=== PATIENT | female | born 1985 | race Caucasian/White ===

== ENCOUNTER 2016-11-23 09:07 | Emergency (ER) | payer SELFPAY ==
[2016-11-23 09:12] VITALS: BP 136/79
--- NOTE | 2016-11-23 10:14 | ER Document Report ---
[id number] NUMBNESS Mode of Arrival: Ambulatory Information source: Patient Notes: 31-year-old female presents with complaints of right hand numbness. Patient notes this has been ongoing for 2 months, notes it is her first and fourth digits that are the worst but her whole hand goes numb. Patient does note that she is o'clock and has repetitive motion of her right hand. Denies any other injuries. Patient notes pain does radiate to her elbow intermittently TRAVEL OUTSIDE OF THE [place] IN LAST 30 DAYS: No - HPI Onset: Other Onset/Duration: Intermittent - Improves with ice worsens in the morning Quality of pain: Achy Severity: Mild Pain Level: 1 Associated symptoms: Other Exacerbated by: Movement Relieved by: Denies Similar symptoms previously: No Recently seen / treated by doctor: No - Related Data Allergies/Adverse Reactions: No Known Allergies Allergy (Verified 11/23/16 09:14) Past Medical History - Social History Smoking Status: Never Smoker Cigarette use (# per day): No Chew tobacco use (# tins/day): No Smoking Education Provided: No Family History: Reviewed & Not Pertinent Patient has suicidal ideation: No Patient has homicidal ideation: No Renal/ Medical History: Denies: Hx Peritoneal Dialysis Surgical Hx: Negative Review of Systems - Review of Systems Notes: REVIEW OF SYSTEMS: CONSTITUTIONAL : Denies fever, chills, or sweats. Denies recent illness. EENT: Denies eye, ear, throat, or mouth pain or symptoms. Denies nasal or sinus congestion or discharge. Denies throat, tongue, or mouth swelling or difficulty swallowing. CARDIOVASCULAR: Denies chest pain. Denies palpitations or racing or irregular heart beat. Denies ankle edema. RESPIRATORY: Denies cough, cold, or chest congestion. Denies shortness of breath, difficulty breathing, or wheezing. GASTROINTESTINAL: Denies abdominal pain or distention. Denies nausea, vomiting , or diarrhea. Denies blood in vomitus, stools, or per rectum. Denies black, tarry stools. Denies constipation. GENITOURINARY: Denies difficulty urinating, painful urination, burning, frequency, blood in urine, or discharge. FEMALE GENITOURINARY: Denies vaginal bleeding, heavy or abnormal periods, irregular periods. Denies vaginal discharge or odor. MUSCULOSKELETAL: Admits to right arm hand pain SKIN: Denies rash, lesions or sores. HEMATOLOGIC : Denies easy bruising or bleeding. LYMPHATIC: Denies swollen, enlarged glands. NEUROLOGICAL: Denies confusion or altered mental status. Denies passing out or loss of consciousness. Denies dizziness or lightheadedness. Denies headache. Denies weakness or paralysis or loss of use of either side. Denies problems with gait or speech. Denies sensory loss, numbness, or tingling. Denies seizures. PSYCHIATRIC: Denies anxiety or stress. Denies depression, suicidal ideation, or homicidal ideation. ALL OTHER SYSTEMS REVIEWED AND NEGATIVE. Dictation was performed using [employer] recognition software PHYSICAL EXAMINATION: GENERAL: Well-appearing, well-nourished and in no acute distress. HEAD: Atraumatic, normocephalic. EYES: Pupils equal round and reactive to light, extraocular movements intact, conjunctiva are normal. ENT: Nares patent, oropharynx clear without exudates. Moist mucous membranes. NECK: Normal range of motion, supple without lymphadenopathy LUNGS: Breath sounds clear to auscultation bilaterally and equal. No wheezes rales or rhonchi. HEART: Regular rate and rhythm without murmurs ABDOMEN: Soft, nontender, nondistended abdomen. No guarding, no rebound. No masses appreciated. Female : deferred Musculoskeletal: Normal range of motion, no pitting or edema. No cyanosis. NEUROLOGICAL: Cranial nerves grossly intact. Normal speech, normal gait. Normal sensory, motor exams PSYCH: Normal mood, normal affect. SKIN: Warm, Dry, normal turgor, no rashes or lesions noted. Physical Exam - Vital signs Vitals: Temp Pulse Resp BP Pulse Ox 97.8 F 70 16 136/79 H 99 11/23/16 09:12 11/23/16 09:12 11/23/16 09:12 11/23/16 09:12 11/23/16 09:12 Course - Re-evaluation Re-evalutation: 11/23/16 10:12 I believe patient's pain is secondary to overuse and repetitive motion, she'll be placed in cock-up splint given steroids anti-inflammatories. Patient's otherwise stable for discharge. Patient will be given orthopedic follow-up as needed After performing a Medical Screening Examination, I estimate there is LOW risk for INTRACRANIAL HEMORRHAGE, UNSTABLE SPINE FRACTURE, CENTRAL CORD SYNDROME, CAUDA EQUINA, THORACIC AORTIC DISSECTION, PNEUMOTHORAX, PERFORATED BOWEL, RUPTURED ABDOMINAL AORTIC ANEURYSM, ACUTE TENDON RUPTURE, COMPARTMENT SYNDROME, or OPEN FRACTURE, thus I consider the discharge disposition reasonable. Also, there is no evidence or peritonitis, sepsis, or toxicity. The patient and I have discussed the diagnosis and risks, and we agree with discharging home to follow-up with their primary doctor with the understanding that symptoms and presentations can change. We also discussed returning to the Emergency Department immediately if new or worsening symptoms occur. We have discussed the symptoms which are most concerning (e.g., bloody stool, fever, changing or worsening pain, vomiting) that necessitate immediate return. 11/23/16 20:48 - Vital Signs Vital signs: Temp Pulse Resp BP Pulse Ox 97.8 F 70 16 136/79 H 99 11/23/16 09:12 11/23/16 09:12 11/23/16 09:12 11/23/16 09:12 11/23/16 09:12 Discharge - Discharge Clinical Impression: Paresthesia, Hand pain, right Condition: Stable Disposition: HOME, SELF-CARE Instructions: Carpal Tunnel Syndrome ([facility]) Additional Instructions: Please allow patient limited use of right hand at work for the next 2 weeks Prescriptions: Prednisone [Deltasone 20 mg Tablet] 3 tab PO DAILY 5 Days Referrals: NIKITA BRITT MD [ACTIVE STAFF] - Follow up in 3-5 days
== END 2016-11-23 10:20 | disposition home or self-care (01) ==
LOC: ER 09:07
DX: R20.0 Anesthesia of skin (principal); M79.641 Pain in right hand
CPT/HCPCS: 99283; L3984

== ENCOUNTER 2020-10-10 10:59 | Emergency (ER) | payer SELFPAY ==
[2020-10-10] MEDS ORDERED: TETRACAINE HCL 0.5% OPH SOLN 4 ML OS ONE (11:46)
--- NOTE | 2020-10-10 11:48 | ER Document Report ---
ED Medical Screen (RME) - General Chief Complaint: Eye Pain Stated Complaint: LEFT EYE PAIN Time Seen by Provider: 10/10/20 11:41 Mode of Arrival: Ambulatory Information source: Patient Notes: HPI; 35-year-old female presents to the emergency room complaining of left eye pain, swelling, and drainage that started this morning. Patient states she was poked in her left eye with the edge of a palm tree plant yesterday. States she used some [id number]-sji-himbbel eyedrops and put ice on it with minimal relief. Woke up with worsening symptoms today. Denies any use of contacts or glasses. This is up-to-date. Denies any chance of . PE: Alert and oriented x3. Unable to examine left eye due to swelling and pain. There is a moderate amount of yellow discharge noted to the left eye. Lungs: Clear to auscultation without rales, rhonchi, wheezes. Heart: Regular rate rhythm without murmurs, rubs, gallops. I have greeted and performed a rapid initial assessment of this patient. A comprehensive ED assessment and evaluation of the patient, analysis of test results and completion of the medical decision making process will be conducted by additional ED providers. I have specifically instructed the patient or family members with the patient to immediately return to any nursing staff should anything change in the patient's condition or with their chief complaint. TRAVEL OUTSIDE OF THE [place] IN LAST 30 DAYS: No - Related Data Allergies/Adverse Reactions: No Known Allergies Allergy (Verified 11/23/16 09:14) Past Medical History Renal/ Medical History: Denies: Hx Peritoneal Dialysis Physical Exam - Vital signs Vitals: Temp Pulse Resp BP Pulse Ox 98.1 F 69 20 152/88 H 99 10/10/20 11:05 10/10/20 11:05 10/10/20 11:05 10/10/20 11:05 10/10/20 11:05 Course - Vital Signs Vital signs: Temp Pulse Resp BP Pulse Ox 98.1 F 69 20 152/88 H 99 10/10/20 11:05 10/10/20 11:05 10/10/20 11:05 10/10/20 11:05 10/10/20 11:05
[2020-10-10] MEDS ORDERED: OXYCODONE-ACETAMINOPHEN 5-325 MG TABLET PO ONE (15:46)
[2020-10-10] MEDS ORDERED: CIPROFLOXACIN HCL 0.3% OPH SOLN 2.5 ML OS ONE (15:46)
--- NOTE | 2020-10-10 15:53 | ER Document Report ---
ED Eye Complaint - General Chief Complaint: Eye Injury Stated Complaint: LEFT EYE PAIN Time Seen by Provider: 10/10/20 11:41 Mode of Arrival: Ambulatory Notes: CHIEF COMPLAINT: Left eye injury yesterday HPI: 35-year-old female who is up-to-date on her tetanus vaccination presenting for left eye injury that occurred yesterday. Was trimming a palm tree in one of the branches struck her in the left eye. Complains of pain and tearing when trying to open the eye. No vision loss ROS: See HPI - all other systems were reviewed and are otherwise negative Constitutional: no fever Eyes: Positive tearing, no blurred vision ENT: no runny nose, no sore throat Integumentary: no rash Allergy: no hives MEDICATIONS: I agree with the patient medications as charted by the RN. ALLERGIES: I agree with the allergies as charted by the RN. PAST MEDICAL HISTORY/PAST SURGICAL HISTORY: Reviewed and agree as charted by RN. SOCIAL HISTORY: Reviewed and agree as charted by RN. FAMILY HISTORY: No significant familial comorbid conditions directly related to patient complaint EXAM: Reviewed vital signs as charted by RN. CONSTITUTIONAL: Alert and oriented and responds appropriately to questions. Well-appearing; well-nourished HEAD: Normocephalic; atraumatic EYES: PERRL; mild injection of the left conjunctive a is noted. There is soft tissue swelling of the upper and lower lids. No visible foreign body under the upper or lower lids of the left eye. There is a small corneal abrasion on Wood lamp exam over the iris with fluorescein stain. Negative Cherie sign. No hyphema. Funduscopic exam does not reveal evidence of disc edema or hemorrhage ENT: normal nose; no rhinorrhea; moist mucous membranes; pharynx without lesions noted, no uvula edema or deviation, no tonsillar hypertrophy, phonation normal NECK: Supple without meningismus; non-tender; no cervical lymphadenopathy, no masses CARD: Capillary refill less than 3 seconds; symmetric distal pulses RESP: Normal chest excursion without splinting or tachypnea ABD/GI: non-distended BACK: The back appears normal EXT: Normal ROM in all joints; no cyanosis, no effusions, no edema SKIN: Normal color for age and race; warm; dry; good turgor NEURO: Moves all extremities equally; Motor and sensory function intact PSYCH: The patient's mood and manner are appropriate. Grooming and personal hygiene are appropriate. MDM: 35-year-old female with a small corneal abrasion to the left eye. We discussed the importance of follow-up given the nature of the injury. We will place her on Cipro drops. Pain medication. Ophthalmology follow-up TRAVEL OUTSIDE OF THE [place] IN LAST 30 DAYS: No - Related Data Allergies/Adverse Reactions: No Known Allergies Allergy (Verified 11/23/16 09:14) Past Medical History - General Information source: Patient - Social History Smoking Status: Current Every Day Smoker Chew tobacco use (# tins/day): No Drug Abuse: None Family History: Reviewed & Not Pertinent Renal/ Medical History: Denies: Hx Peritoneal Dialysis Physical Exam - Vital signs Vitals: Temp Pulse Resp BP Pulse Ox 98.1 F 69 20 152/88 H 99 10/10/20 11:05 10/10/20 11:05 10/10/20 11:05 10/10/20 11:05 10/10/20 11:05 - HEENT Visual acuity- Right eye: 20/25 Visual acuity- Left eye: 20/200 Visual acuity- Both eyes: -2 20/40 Corrective lenses worn: No Course - Vital Signs Vital signs: Temp Pulse Resp BP Pulse Ox 98.1 F 69 20 152/88 H 99 10/10/20 11:05 10/10/20 11:05 10/10/20 11:05 10/10/20 11:05 10/10/20 11:05 - Laboratory Results Critical Laboratory Results Reviewed: No Critical Results - Radiology Results Critical Radiology Results Reviewed: No Critical Results Discharge - Discharge Clinical Impression: Corneal abrasion, left Qualifiers: Encounter type: initial encounter Qualified Code(s): S05.02XA - Injury of conjunctiva and corneal abrasion without foreign body, left eye, initial encounter Condition: Stable Disposition: HOME, SELF-CARE Instructions: Corneal Abrasion ([facility]) Additional Instructions: 1. make sure to follow up closely with Ophthalmology for further evaluation and treatment 2. medications as prescribed, no driving on narcotics. 3. return for any worsening pain, visual change or loss Prescriptions: Ciprofloxacin HCl [Ciloxan 0.3% Oph Soln 2.5 ml] 2 drop OS Q6H #1 bottle Oxycodone HCl/Acetaminophen [Percocet 5-325 mg Tablet] 1 tab PO Q4H PRN #15 tab PRN Reason: Forms: Return to Work Referrals: AUBREY WALKER MD [ACTIVE STAFF] - Follow up as needed
[2020-10-10 16:07] VITALS: BP 151/97
== END 2020-10-10 16:08 | disposition home or self-care (01) ==
LOC: ER 10:59
DX: S05.02XA Injury of conjunctiva and corneal abrasion without foreign body, left eye, initial encounter (principal); H57.12 Ocular pain, left eye; W22.8XXA Striking against or struck by other objects, initial encounter; Y93.H2 Activity, gardening and landscaping; F17.200 Nicotine dependence, unspecified, uncomplicated
CPT/HCPCS: 99284; J3490 ×2